=== PATIENT | female | born 1965 ===

== ENCOUNTER 2020-08-09 06:00 | Day surgery (SDC) | payer OTHER ==
[~2020-08-09 06:00] MED LIST: CLARITIN5 MG PO
[2020-08-09] MEDS ORDERED: COLACE100 MG PO (08:56)
[2020-08-09] MEDS ORDERED: PERCOCET 5-3251 EACH PO (08:56)
== END 2020-08-09 16:00 | disposition home or self-care (01) ==
LOC: CIR.AMB 06:00 → EDSTATUS 10:30 → CIR.AMB 10:30
PROVIDERS: ATTEND Surgery
DX: K60.1 Chronic anal fissure (principal); K62.4 Stenosis of anus and rectum; Z20.822 Contact with and (suspected) exposure to COVID-19
CPT/HCPCS: 46700; 46505; J0585